=== PATIENT | male | born 1980 | race Caucasian/White ===

== ENCOUNTER 2019-06-10 11:04 | Emergency (ER) | payer MEDICAID, SELFPAY ==
[2019-06-10 10:55] VITALS: BP 130/81; PULSE 127; RESP 18; TEMP 36.9; O2SAT 99; BMI 22.0
--- NOTE | 2019-06-10 11:10 | XR_ITS ---
PROCEDURE: XR FOOT LT 2V CLINICAL INDICATION: fall Posttraumatic pain COMPARISON: No exams were available for comparison FINDINGS: No fracture or dislocation. No lytic or blastic change. There is normal mineralization. There is a cerclage wire along the proximal shaft of the 2nd metatarsal. A rounded calcific density is present between proximal aspect of the 1st and 2nd metatarsal. There is some mild widening of the space between the base of the 1st and 2nd metatarsals with some bony hypertrophy at the base of the 2nd metatarsal which may be related to old fracture. Other findings:None. IMPRESSION: Chronic and postsurgical changes, no acute finding. Dictated by: Pritesh Mcintosh MD 06/10/2019 12:33 Electronically signed by Pritesh Mcintosh MD in [place] 06/10/2019 12:33
--- NOTE | 2019-06-10 11:10 | XR_ITS ---
PROCEDURE: XR ANKLE LT 2V CLINICAL INDICATION: fall Posttraumatic pain COMPARISON: No exams were available for comparison FINDINGS: No fracture, dislocation, lytic change, or blastic change evident. No significant degenerative change IMPRESSION: No acute findings. Dictated by: Pritesh Mcintosh MD 06/10/2019 12:34 Electronically signed by Pritesh Mcintosh MD in [place] 06/10/2019 12:34
--- NOTE | 2019-06-10 11:19 | HMH.EDGENADL ---
ED Disposition Clinical Impression: Drug abuse Sprain of left foot Qualifiers: Encounter type: initial encounter Qualified Code(s): S93.602A - Unspecified sprain of left foot, initial encounter Psychosis Qualifiers: Psychosis type: unspecified psychosis type Qualified Code(s): F29 - Unspecified psychosis not due to a substance or known physiological condition Disposition: Xfer Psychiatric Hosp Condition on Discharge: Fair Instructions: DI for Foot Sprain, DI for Psychosis Additional Instructions: Follow-up with Harika Peng in her office, call for appointment. Follow-up with your orthopedic doctor at [facility] for your foot. Wear your boot and use ibuprofen, ice, and elevation for pain and swelling until follow-up. Referrals: Provider,Referral, MD [Primary Care Provider] - Forms: Transfer Record - ED - Critical Care Critical Care Time: No Attestation: On 06/10/19, the high probability of a clinically significant, sudden or life threatening deterioration of the following system(s) required my full and direct attention, intervention and personal management. The time I documented below is in addition to time spent performing reported procedures but includes the following listed in this critical care notation. Medical Decision Making - Kaushik Inquiry Pt receiving controlled substance: No Vital Signs: 06/10/19 10:55 06/10/19 12:55 06/10/19 15:46 Temperature 98.5 F 98.2 F Temperature Source Oral Pulse Rate 112 H Pulse Rate [Radial] 127 H 111 H Respiratory Rate 18 19 20 Blood Pressure 122/87 Blood Pressure [Right Arm] 130/81 111/78 Blood Pressure Mean [Right Arm] 97 89 Blood Pressure Source [Right Arm] Automatic Cuff Automatic Cuff Blood Pressure Position [Right Arm] Sitting Supine 02 Sat by Pulse Oximetry 99 99 Oxygen Delivery Method Room Air Room Air - Lab Data Lab Results 06/10/19 10:58: WBC 6.3, RBC 4.42 L, Hgb 12.8 L, Hct 37.4 L, MCV 84.8, MCH 28.9, MCHC 34.1, RDW 13.5, Plt Count 238, MPV 7.6, Neut % (Auto) 85.4 H, Lymph % (Auto) 11.4, [place] % (Auto) 0.8 L, Eos % (Auto) 1.9, Baso % (Auto) 0.5, Neut # (Auto) 5.4, Lymph # (Auto) 0.7, [place] # (Auto) 0.1, Eos # (Auto) 0.1, Baso # (Auto) 0.0, Total Counted 100, Neutrophils % (Manual) 71, Lymphocytes % (Manual) 24, Monocytes % (Manual) 3, Eosinophils % (Manual) 1, Myelocytes % 1, Platelet Estimate Normal, RBC Morphology Normal 06/10/19 11:25: Sodium 134 L, Potassium 3.8, Chloride 102, Carbon Dioxide 24, Anion Gap 11.8, BUN 16, Creatinine 0.80, Estimated Creat Clear 129, Estimated GFR 109, Est GFR ( Amer) 132, Glucose 74, Calcium 9.0, Total Bilirubin 1.3, AST 62 H, ALT 103 H, Alkaline Phosphatase 87, Total Protein 6.7, Albumin 3.8, Globulin 2.9, Albumin/Globulin Ratio 1.3 06/10/19 11:25: Plasma/Serum Alcohol < 10 06/10/19 15:19: Urine Opiates Screen Negative, Urine Methadone Screen Negative, Ur Barbituates Screen Negative, Ur Phencyclidine Scrn Negative, Ur Amphetamines Screen Not Reportable, U Benzodiazepines Scrn Negative, Urine Cocaine Screen Positive H, U Marijuana (THC) Screen Positive H 06/10/19 15:19: Urine Color Yellow, Urine Appearance Clear, Urine pH 6.0, Ur Specific [place] 1.015, Urine Protein Negative, Urine Glucose (UA) Negative, Urine Ketones 1+, Urine Blood Negative, Urine Nitrate Negative, Urine Bilirubin Negative, Urine Urobilinogen 1.0, Ur Leukocyte Esterase Negative, Urine RBC Occasional, Urine WBC Occasional, Ur Squamous Epith Cells Occasional, Urine Bacteria None Result diagrams: 06/10/19 10:58 06/10/19 11:25 Orders (Tests/Meds): ED MEDICATIONS Discontinued Medications Generic Name Dose Route Start Last Admin Trade Name Freq PRN Reason Stop Dose Admin Sodium Chloride 1,000 ml 06/10/19 12:19 06/10/19 12:37 Sod Chlor 0.9% 1000ml Bag IV 06/10/19 12:20 1,000 ml BOLUS ONE Administration - Radiology Data #1 Image(s): Ankle, Foot/Toes Image Reviewed: Yes I reviewed the patient's ra
[2019-06-10 11:22] LABS: Basophils % 0.5 % (0.1-2.0); Eosinophils # 0.1 K/mm3 (0.0-0.4); Eosinophils % 1.9 % (0.1-12.0); Hematocrit 37.4 % (42.0-52.0); Hemoglobin 12.8 g/dL (14.1-18.0); Lymphocytes # 0.7 K/mm3 (0.7-4.5); Lymphocytes % 11.4 % (10-50); Mean Corpuscular HGB Conc 34.1 g/dL (31.8-35.4); Mean Corpuscular Hemoglobin 28.9 pg (27.0-31.2); Mean Corpuscular Volume 84.8 fl (80-94); Mean Platelet Volume 7.6 fl (7.4-10.4); Monocytes # 0.1 K/mm3 (0.1-1.0); Monocytes % 0.8 % (1.7-9.3); Neutrophils # 5.4 K/mm3 (1.8-7.8); Neutrophils % 85.4 % (37.0-80.0); Platelet Count 238 K/mm3 (142-424); Red Blood Count 4.42 M/mm3 (4.60-6.20); Red Cell Distribution Width 13.5 % (11.5-17.5); White Blood Count 6.3 K/mm3 (4.8-10.8)
[2019-06-10 11:25] LABS: MANUAL DIFFERENTIAL MANUAL DIFFERENTIAL (MANUAL DIFF)
[2019-06-10 11:37] LABS: Eosinophils % 1 % (0-3); Lymphocytes % 24 % (10-50); Monocytes % 3 % (2-9); Myelocytes % 1 (0-1); Neutrophils % 71 % (42-76); Platelet Estimate Normal; RBC Morphology Normal; Total Cells Counted 100
[2019-06-10 11:40] LABS: Chloride 102 mmol/L (98-107); Potassium 3.8 mmoL/L (3.5-5.1); Sodium 134 mmol/L (136-145)
[2019-06-10 11:42] LABS: Blood Urea Nitrogen 16 mg/dl (9-20); Creatinine Clearance Estimated 129 mL/min (50-200); Estimated Glomerular Filt Rate 109 ml/min (>60); GFR (African American) 132 ML/MIN (>60)
[2019-06-10 11:43] LABS: Alanine Aminotransferase 103 U/L (12-78); Albumin Level 3.8 g/dl (3.5-5.0); Albumin/Globulin Ratio 1.3 (1.1-1.8); Alkaline Phosphatase 87 U/L (38-126); Anion Gap 11.8 mEq/L (5-15); Aspartate Amino Transferase 62 U/L (17-59); Bilirubin,Total 1.3 mg/dl (0.2-1.3); Carbon Dioxide 24 mmol/L (22.0-30.0); Globulin 2.9 g/dL (1.3-3.2); Glucose 74 mg/dl (74-100); Total Protein,Serum 6.7 g/dl (6.3-8.2)
--- NOTE | 2019-06-10 11:47 | PC.NURSE ---
Patient states that he is unable to urinate at this time.
[2019-06-10 11:55] LABS: Ethyl Alcohol < 10 mg/dl (0-10)
[2019-06-10 12:55] VITALS: BP 111/78; PULSE 111; RESP 19; O2SAT 99
--- NOTE | 2019-06-10 13:20 | PC.NURSE ---
Contacted Harika Peng APRN for consult.
--- NOTE | 2019-06-10 14:45 | PC.NURSE ---
Patient now requesting to go inpatient for psychiatric help.
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
[2019-06-10 15:23] LABS: Microscopic, Urine URINE MICROSCOPIC (MICROSCOPIC)
[2019-06-10 15:25] LABS: Appearance,Urine CLEAR (Clear); Bilirubin,Urine Negative (Negative); Blood, Urine Negative (Negative); Color,Urine YELLOW (Yellow); Glucose,Urine (UA) Negative (Negative); Ketones,Urine 1+ (Negative); Leukocyte Esterase,Urine Negative (Negative); Nitrate,Urine Negative (Negative); Protein,Urine Negative (Negative); Specific Gravity, Urine 1.015 (1.005-1.030)
[2019-06-10 15:34] LABS: RBC,Urine Occasional #/hpf (0-3); Squamous Epithelial Cell,Urine Occasional #/hpf (0-5); WBC,Urine Occasional #/hpf (0-3)
[2019-06-10 15:35] LABS: Benzodiazepines Screen,Urine Negative ng/ml (<200)
--- NOTE | 2019-06-10 15:35 | ECG_ITS ---
APPROVED REPORT Exam: Resting ECG HR:112 bpm ECG Measurements Heart Rate 112 AXES ND 140 P 70 QRSd 86 QRS 81 QT 334 T 61 QTc 455 <Conclusion> Sinus tachycardia Otherwise normal ECG Electronically signed by : Luis Villagomez, 06/12/2019 06:48:42
[2019-06-10 15:36] LABS: Barbiturates Screen,Urine Negative ng/ml (<200)
[2019-06-10 15:37] LABS: Cannabinoid Screen,Urine Positive ng/ml (<50)
[2019-06-10 15:38] LABS: Cocaine Screen,Urine Positive ng/ml (<300); Methadone Screen,Urine Negative ng/ml (<300)
[2019-06-10 15:39] LABS: Opiate Screen,Urine Negative ng/ml (<300); Phencyclidine Screen,Urine Negative ng/ml (<25)
[2019-06-10 15:46] VITALS: BP 122/87; PULSE 112; RESP 20; TEMP 36.8; O2SAT 98
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
[2019-06-14 21:03] LABS: Amphetamine Positive (.); Amphetamines Positive (.); Methamphetamine Positive (.)
[2019-06-15 04:25] LABS: Amphetamine (GC/MS) 4494 ng/mL (Cutoff=500); Methamphetamine (GC/MS) >4000 ng/mL (Cutoff=500)
== END 2019-06-10 16:05 ==
PROVIDERS: Emergency Provider Emergency Medicine
DX: S93.602A Unspecified sprain of left foot, initial encounter (principal); F29 Unspecified psychosis not due to a substance or known physiological condition; F15.10 Other stimulant abuse, uncomplicated; F19.10 Other psychoactive substance abuse, uncomplicated; F12.10 Cannabis abuse, uncomplicated; F17.210 Nicotine dependence, cigarettes, uncomplicated
CPT/HCPCS: 36415; 73600; 73620; 80053; 80305; 80324; 81001; 85007; 85025; 93005; 96365; 99283; 99284

== ENCOUNTER 2019-08-11 08:31 | Emergency (ER) | payer MEDICAID, SELFPAY ==
[2019-08-11 08:41] VITALS: BP 135/84; PULSE 90; RESP 16; TEMP 37.1; O2SAT 98; BMI 22.4
--- NOTE | 2019-08-11 08:47 | XR_ITS ---
PROCEDURE: XR RIBS LT MIN 3V W CXR1V CLINICAL INDICATION: injury Posttraumatic pain COMPARISON: Chest from 08/06/2018 FINDINGS: Multiple views of the left ribs show no obvious fracture. No lytic or blastic change. Consider follow-up in 7-[address] with 3D reformats if pain persists Frontal view of the chest shows no acute finding. Calcified granulomas are noted on the left. IMPRESSION: No acute findings. Dictated by: Pritesh Mcintosh MD 08/11/2019 09:49 Electronically signed by Pritesh Mcintosh MD in [place] 08/11/2019 09:49
--- NOTE | 2019-08-11 08:48 | CT_ITS ---
PROCEDURE: CT LUMBAR SPINE WO CON CLINICAL HISTORY: injury Left-sided back pain following injury COMPARISON: No exams were available for comparison TECHNIQUE: Axial images obtained with sagittal and coronal reformats. All CT scans at the facility use one or more dose reduction, viz: automated exposure control, ma/kV adjustment per patient size (including targeted exams where dose is matched to indication, i.e. head), or iterative reconstruction technique. FINDINGS: Normal alignment. No fracture or dislocation. There is bulging disc at L4-5 with small broad based central disc protrusion very slightly eccentric to the right. Mild bulging disc at L5-S1 with small central disc protrusion slightly eccentric to the left. IMPRESSION: 1. No acute fracture. 2. Bulging disc at L4-5 with broad-based central disc protrusion slightly eccentric to the right 3. Mild bulging disc L5-S1 with small central disc protrusion slightly eccentric to the left Dictated by: Pritesh Mcintosh MD 08/11/2019 09:39 Electronically signed by Pritesh Mcintosh MD in [place] 08/11/2019 09:39
--- NOTE | 2019-08-11 08:48 | CT_ITS ---
PROCEDURE: CT THORACIC SPINE WO CON CLINICAL HISTORY: injury Posttraumatic pain, injury with pain, trauma with contusion or hematoma COMPARISON: No exams were available for comparison TECHNIQUE: Axial images obtained with sagittal and coronal reformats. All CT scans at the facility use one or more dose reduction, viz: automated exposure control, ma/kV adjustment per patient size (including targeted exams where dose is matched to indication, i.e. head), or iterative reconstruction technique. FINDINGS: Normal alignment. No fracture or dislocation. No lytic or blastic change. There is mild thoracic curvature convex right. Is mild degenerative disc disease at T6-T7 There are atelectatic changes in the left lower lobe IMPRESSION: 1. No acute fracture. 2. Left lower lobe atelectasis Dictated by: Pritesh Mcintosh MD 08/11/2019 09:42 Electronically signed by Pritesh Mcintosh MD in [place] 08/11/2019 09:42
--- NOTE | 2019-08-11 08:49 | CT_ITS ---
PROCEDURE: CT PELVIS WO CON CLINICAL INDICATION: injury Posttraumatic pain, injury with pain, left leg, left hip pain COMPARISON: No exams were available for comparison TECHNIQUE: Axial images obtained with sagittal and coronal reformats. All CT scans at the facility use one or more dose reduction, viz: automated exposure control, ma/kV adjustment per patient size (including targeted exams where dose is matched to indication, i.e. head), or iterative reconstruction technique. FINDINGS: No fracture or dislocation. No lytic or blastic change. IMPRESSION: No acute finding Dictated by: Pritesh Mcintosh MD 08/11/2019 09:48 Electronically signed by Pritesh Mcintosh MD in [place] 08/11/2019 09:48
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
[2019-08-11 10:25] VITALS: BP 112/78; PULSE 75; RESP 16; TEMP 36.6; O2SAT 98
== END 2019-08-11 10:27 | disposition home or self-care (01) ==
PROVIDERS: Emergency Provider Emergency Medicine
DX: S20.212A Contusion of left front wall of thorax, initial encounter (principal); S29.019A Strain of muscle and tendon of unspecified wall of thorax, initial encounter; S33.5XXA Sprain of ligaments of lumbar spine, initial encounter; V89.2XXA Person injured in unspecified motor-vehicle accident, traffic, initial encounter; Y92.414 Local residential or business street as the place of occurrence of the external cause
CPT/HCPCS: 71101; 72128; 72131; 72192; 99282

== ENCOUNTER 2019-12-11 06:41 | Emergency (ER) | payer MEDICAID, SELFPAY ==
[2019-12-11 06:47] VITALS: BP 152/96; PULSE 102; RESP 18; O2SAT 100; BMI 21.7
[2019-12-11 06:53] VITALS: BP 152/96; PULSE 102; RESP 18; TEMP 36.8; O2SAT 100
--- NOTE | 2019-12-11 06:54 | HMH.EDMCLR ---
ED Disposition Clinical Impression: Medical clearance for incarceration Disposition: Home, Self-Care Condition on Discharge: Good Instructions: General Wellness (Alternative Therapy) Additional Instructions: see pcp for follow up - Critical Care Critical Care Time: No Attestation: On , the high probability of a clinically significant, sudden or life threatening deterioration of the following system(s) required my full and direct attention, intervention and personal management. The time I documented below is in addition to time spent performing reported procedures but includes the following listed in this critical care notation. Medical Decision Making - Medical Records Medical records reviewed: Yes: I reviewed the patient's medical records. - Kaushik Inquiry Pt receiving controlled substance: No Vital Signs: 12/11/19 06:47 Pulse Rate [Right Brachial] 102 H Respiratory Rate 18 Blood Pressure [Right Arm] 152/96 H Blood Pressure Mean [Right Arm] 114 Blood Pressure Source [Right Arm] Automatic Cuff Blood Pressure Position [Right Arm] Sitting 02 Sat by Pulse Oximetry 100 Oxygen Delivery Method Room Air Medical Clearance HPI - General Chief complaint: Medical Clearance Stated complaint: Medical Clearance Time Seen by Provider: 12/11/19 06:54 Mode of Arrival: Ambulatory Source of Information: Patient, Medical Record Description of Symptoms (Recalled from ER Triage Doc. by RN): Patient here for medical clearance. - History of Present Illness HPI Narrative: no c/o MD complaint: medical clearance requested Onset (ago): hour(s) Place: home Alleged Intoxication: No Traumatic Symptoms: denies traumatic injury Associated Symptoms: denies other symptoms Treatments Prior to Arrival: none Home medications: Previous Rx's Medication Instructions Recorded Meloxicam [Mobic 15 mg tab] 15 mg PO DAILY #15 tab 08/11/19 Allergies/Adverse reactions: Allergies Allergy/AdvReac Type Severity Reaction Status Date / Time No Known Allergies Allergy Verified 08/06/18 21:14 [facility] History - Hepatitis A Screen Drug use history?: No High risk sexual behaviors?: No History of sexually transmitted infection?: No Currently employed?: No Childcare worker?: No Do you have indoor plumbing?: Yes Do you have electricity?: Yes Attestation statement:: This patient has been screened for Hepatitis A risk factors. I have reviewed the patient's past medical history: Yes Medical History: Denies:: Cancer, Diabetes Mellitus Type 1, Diabetes Mellitus Type 2, MRSA Amputation: No - Social History Smoking Status: Current every day smoker Tobacco Type: cigarettes # Packs/Day (cigarettes): 1 Alcohol Intake: never Substance Use Type: methamphetamine, prescription drug, other Occupational Status: other Housing: other Family Hx:: Unable to obtain ROS Obtained: Yes All systems reviewed & no additional complaints Physical Exam - General General appearance: alert - Head Head exam: normocephalic - Eye Eye exam: Present: PERRL, EOMI - ENT ENT exam: Present: mucous membranes moist - Neck Neck exam: Present: trachea midline - Respiratory Respiratory exam: Present: normal lung sounds bilaterally. Absent: respiratory distress - Cardiovascular Cardiovascular exam: Present: regular rate. Absent: systolic murmur - Abdominal Exam Abdominal exam: Present: soft - Extremities Exam Extremities exam: Present: full ROM - Neurological Exam Neurological exam: Present: alert, oriented X3, CN II-XII intact - Psychiatric Psychiatric exam: Present: normal affect - Skin Skin exam: Absent: rash
== END 2019-12-11 06:56 | disposition home or self-care (01) ==
PROVIDERS: Emergency Provider Emergency Medicine
DX: Z00.8 Encounter for other general examination (principal); R03.0 Elevated blood-pressure reading, without diagnosis of hypertension; F17.210 Nicotine dependence, cigarettes, uncomplicated
CPT/HCPCS: 99282